=== PATIENT | female | born 1975 | race Caucasian/White ===

== ENCOUNTER → 2023-09-25 12:18 | Outpatient (REF) | payer BC, SELFPAY ==
[2023-09-25 13:41] LABS: APTT 26.6 Sec (23.4-35.0)
[2023-09-25 18:17] LABS: INR 0.93; PT 12.4 Sec (11.4-14.6)
== END ==
LOC: REG 12:18
PROVIDERS: ATTENDING PHYSICIAN Surgery; FAMILY PHYSICIAN Physician Assistant Medical
DX: N63.0 Unspecified lump in unspecified breast (principal)
CPT/HCPCS: 36415; 85610; 85730

== ENCOUNTER → 2023-09-27 07:24 | Outpatient (REF) | payer BC, SELFPAY | LOC: MRI 3T 07:24 | PROVIDERS: ATTENDING PHYSICIAN Surgery; FAMILY PHYSICIAN Physician Assistant Medical | DX: N63.0 Unspecified lump in unspecified breast (principal) | CPT/HCPCS: 77049; A9585 ==

== ENCOUNTER → 2024-04-10 11:48 | Outpatient (REF) | payer BC, SELFPAY ==
[2024-04-10 12:31] LABS: Blood Urea Nitrogen 22 mg/dl (7-17); Calcium 10.3 mg/dl (8.4-10.2); Carbon Dioxide 24 mmol/L (22-30); Chloride 102 mmol/L (98-107); Glucose 89 mg/dl (70-99); HDL Cholesterol 98 mg/dl; LDL Cholesterol, Calculated 91 mg/dl; Potassium 4.3 mmol/L (3.5-5.1); Sodium 140 mmol/L (135-145); Total Cholesterol 202 mg/dl (50-199); Triglyceride 66 mg/dl (10-149); Very Low Density Lipoprotein 13 mg/dl (0-30); eGFR > 60.00
[2024-04-10 13:09] LABS: TSH 6.93 uIU/ml (0.47-4.68)
[2024-04-10 14:27] LABS: Glycohemoglobin (HgbA1c) 5.1 % (4.0-5.6)
== END ==
LOC: REG 11:48
PROVIDERS: ATTENDING PHYSICIAN Student in an Organized Health Care Education/Training Program; FAMILY PHYSICIAN Physician Assistant Medical
DX: Z00.00 Encounter for general adult medical examination without abnormal findings (principal)
CPT/HCPCS: 36415; 80048; 80061; 83036; 84443

== ENCOUNTER → 2024-11-06 12:55 | Outpatient (REF) | payer BC, SELFPAY ==
[2024-11-06 14:32] LABS: TSH Reflex To Free T4 2.87 uIU/ml (0.47-4.68)
== END ==
LOC: REG 12:55
PROVIDERS: ATTENDING PHYSICIAN Student in an Organized Health Care Education/Training Program
DX: R79.89 Other specified abnormal findings of blood chemistry (principal)
CPT/HCPCS: 36415; 84443

== ENCOUNTER → 2024-11-26 14:58 | Outpatient (REF) | payer BC, SELFPAY | LOC: CPAP 14:58 | PROVIDERS: ATTENDING PHYSICIAN Obstetrics & Gynecology | DX: Z01.419 Encounter for gynecological examination (general) (routine) without abnormal findings (principal); Z11.51 Encounter for screening for human papillomavirus (HPV) | CPT/HCPCS: 87624 ==

== ENCOUNTER → 2025-01-26 14:29 | Outpatient (REF) | payer BC, SELFPAY ==
[2025-01-26 16:29] LABS: Urine Character Clear (Clear)
== END ==
LOC: CLAB 14:29
PROVIDERS: ATTENDING PHYSICIAN Family Medicine
DX: R30.0 Dysuria (principal)
CPT/HCPCS: 81003

== ENCOUNTER → 2025-02-02 12:07 | Outpatient (REF) | payer BC, SELFPAY | LOC: WDC 12:07 | PROVIDERS: ATTENDING PHYSICIAN Obstetrics & Gynecology; FAMILY PHYSICIAN Physician Assistant Medical | DX: Z12.31 Encounter for screening mammogram for malignant neoplasm of breast (principal) | CPT/HCPCS: 77063; 77067 ==

== ENCOUNTER → 2025-02-25 10:14 | Outpatient (REF) | payer BC, SELFPAY | LOC: WDC 10:14 | PROVIDERS: ATTENDING PHYSICIAN Obstetrics & Gynecology; FAMILY PHYSICIAN Physician Assistant Medical | DX: R92.8 Other abnormal and inconclusive findings on diagnostic imaging of breast (principal) | CPT/HCPCS: 76642 ==